=== PATIENT | female | born 1930 | race Caucasian/White ===

== ENCOUNTER 2017-01-28 13:22 | Emergency (ER) | payer MEDICARE, OTHER ==
[~2017-01-28] VITALS: Ht 154.9 cm; Wt 54.5 kg
[2017-01-28 13:42] VITALS: BP 171/99; PULSE 68; RESP 18; O2SAT 100
--- NOTE | 2017-01-28 15:31 | ED.REPORT ---
HPI-Back Pain 40 and Over Date of Service Jan 28, 2017 ED Provider: Doc,Ed MD Mrs. Gonzalez is a 86 year old female with a past medical history of diabetes and hypothyroidism presents to the ED with mid back pain. She had a ground level fall 4 days ago at 3 AM in the morning. She noted that she probably tripped on something and fell hitting her back on bathroom counter. Pain is described at a dull pressure worse with rotation. Patient notes that pain is slightly better with heat pack. She has also tried [id number] ibuprofen which has not helped with the pain. She denies radiating pain. Nice loss of bowel or urinary control. His loss of consciousness, chest pain, shortness of breath, palpitations. She went to urgent care earlier this morning in hopes that she could get something for pain relief but they told her to come to the ED. Nursing Notes Stated Complaint: BACK PAIN POST FALL Chief Complaint: Multiple Trauma/Fall Allergies: Coded Allergies: Iodinated Contrast- Oral and IV Dye (Verified Allergy, Severe, 01/28/17) Scheduled PRN Hydrocodone-Acetaminophen 5-325 mg (Hydrocodone-Acetaminophen 5-325 mg) 1 Each Tablet 1 TABLET PO Q4H PRN PRN For Pain General Time Seen by MD: 15:30 Chief Complaint Back pain Hx Obtained From: Patient Sudden in Onset?: Yes Onset Occurred: 4 days ago Symptom Duration: Constant Caused by: Fall Location: : Spinal thoracic area Quality: Dull, Heaviness Radiation: : Does not radiate Severity: Current: Pain level 8 out of 10 Severity: Maximum: Pain level 9 out of 10 Pertinent Negative: Pt denies other symptoms Relieved by: Heat Past Medical History Past Medical History Diabetes Hypothyroidism Past Surgical History Tonsillectomy lumpectomy Hysterectomy Reports: Hysterectomy, Tonsillectomy Smoking History Current Every Day Smoker Social History Alcohol Use: 1-3 per week Ambulatory Status Independent Review of Systems Basic Review of Systems Eyes: Vision NL, No discharge Hematologic: No bleeding, No bruising Endocrine: No cold intolerance, No heat intolerance, No weight gain, No weight loss Skin: No bruising, No rash, No itch Allergy / Immune: No allergy Psychiatric: Normal thought content Constitutional: Denies: Chills, Fever, Weakness - generalized Respiratory: Denies: Dyspnea on exertion, Shortness of breath Cardiovascular: Denies: Chest pain GI: Denies: Nausea, Vomiting Female: Denies: Flank pain Musculoskeletal: Reports: Back pain, Thoracic pain Neurologic: Denies: Bladder dysfunction, Bowel dysfunction Complete sys rev & neg: except as marked. Physical Exam Initial Vital Signs Vital Signs (First) Date Time Temp Pulse Resp B/P Pulse Ox O2 Delivery O2 Flow Rate FiO2 01/28/17 13:42 36.8 68 18 171/99 100 Room Air Head / Eyes: Atraumatic, Normocephalic, PERRL ENT: Mucous membranes moist, Conjunctiva normal, No scleral icterus Neck: Supple, Non-tender, Full range of motion Extremities: Vascular intact, Neuro intact, No swelling, No tenderness Skin: Warm, Dry, No cyanosis Psychiatric: Mood/affect normal, Behavior normal, Normal thought content Respiratory / Chest: Breath sounds NL, Breath sounds = bilat, No respiratory distress, No rales, No rhonchi, No wheezing Cardiovascular: Heart rate NL, Regular rhythm, Heart sounds NL, No murmurs, Peripheral circulation NL Abdomen: Soft, Non-tender, No guarding, No rebound, No distention, No palpable mass, No pulsatile mass Flank / Spine / Paraspinal: Positive: Thoracic spine tender... (point tenderness at T10.) Neurologic: Oriented X3, Speech NL, No motor deficits, No sensory deficits Re-Eval/Medical Decision Med Decision/Clinical Course Attending note: I saw and evaluated this patient. She has focal and isolated midthoracic back pain without neurologic deficit. X-rays show a fracture which would correlate to the area of her pain. The patient is feeling somewhat better after Vicodin. It is strongly recommended that she stay in the department so that we can discuss her case with a spine surgeon and better determine her outpatient care plan. She is insistent on going home. She is prescribed Vicodin and given a prescription for a TLSO brace. Again she is neurologically intact. It is strongly recommended that she follow up with her doctor in order to find a outpatient spine surgeon. Return and follow-up precautions given. Mr. Gonzalez is a very pleasant 86-year-old female who suffered ground-level fall after tripping on some carpet. Patient denies lightheadedness, dizziness, palpitations, chest pain, shortness of breath. I did not believe her fall was caused by a syncopal episode. Patient has point tenderness at T10. X-ray of her thoracic spine was done to rule out fracture. X-ray of her thoracic spine showed a fracture of T8 75% loss of vertebral volume. Patient is very adamant and anxious to go home and is unwilling to wait for orthopedic spine consult. We inform patient that if she experiences any numbness or tingling all mild loss of urinary or bowel to report back to the ED. Have prescribed her a back brace and recommended that she follow up with a spine doctor. Discharge & Departure Impression: Primary Impression: Fracture Disposition: Home Discharge Condition All VS Reviewed: Yes Condition: Stable Patient Instructions: Vertebral Compression Fracture (ED) Additional Instructions: We did a x-ray of her thoracic spine today showing that you have a fracture on T8. We are prescribing you a back brace today. Also prescribing pain medication. We are referring you to an orthopedic surgeon Re Murray. We highly recommend that you go see a spine surgeon to evaluate your fracture. Referrals: Tha Miranda MD (PCP) Ladan Murray MD, Timothy S DO Jan 28, 2017 15:30 Halima Leon DO Jan 28, 2017 16:22
[2017-01-28] MEDS ORDERED: HYDROcodone-APAP 5-325 mg Tablet PO ONE (16:30)
--- NOTE | 2017-01-28 17:05 | DRSVH ---
PROCEDURE: X-RAY THORACIC SPINE, 2 VIEWS INDICATIONS: back pain TECHNIQUE: 3 views of the thoracic spine were acquired. COMPARISON: [facility], , SPINE THORACIC 3VW, 02/28/2014, 13:46. FINDINGS: Bones: On the lateral views, the cervicothoracic junction is adequately visualized and the alignment through this region is within normal limits. There is a new compression deformity involving the T8 v ertebral body with approximately 75% of vertical height loss, which is more pronounced anteriorly. O therwise, the remainder of the vertebral body heights are within normal limits throughout the thoraci c spine without evidence to suggest acute compression fracture. The bone mineralization is decreased . Mild to moderate multilevel degenerative changes of the thoracic spine are more prominent involving t he lower thoracic levels. Soft tissues: The imaged overlying soft tissues of the chest are within normal limits. IMPRESSION: Age-indeterminate T8 compression deformity is new since 02/28/14. The need for better ch aracterization utilizing MRI may be determined clinically. Dictated by: Florencio Purvis M.D. on 01/28/2017 at 15:57 Approved by: Florencio Purvis M.D. on 01/28/2017 at 16:01
[2017-01-28] MEDS ORDERED: HYDR-4003 PO (17:52)
[2017-01-28 17:57] VITALS: BP 153/53; PULSE 71; RESP 16; O2SAT 99
== END 2017-01-28 17:54 | disposition home or self-care (01) ==
LOC: SED 13:22
DX: S22.068A Other fracture of T7-T8 thoracic vertebra, initial encounter for closed fracture (principal); W01.198A Fall on same level from slipping, tripping and stumbling with subsequent striking against other object, initial encounter; Y93.01 Activity, walking, marching and hiking; Y99.8 Other external cause status; Y92.002 Bathroom of unspecified non-institutional (private) residence as the place of occurrence of the external cause; E11.9 Type 2 diabetes mellitus without complications; E03.9 Hypothyroidism, unspecified; F17.210 Nicotine dependence, cigarettes, uncomplicated